=== PATIENT | female | born 1945 | race Caucasian/White ===

== ENCOUNTER 2016-12-05 11:45 | Emergency (ER) | payer OTHER ==
--- NOTE | 2016-12-05 11:50 | EDPHY ---
H & P Time Seen by Provider: 12/05/16 11:47 Constitutional: Initial Vital Signs Temperature (C) 36.3 C 12/05/16 11:57 Heart Rate 63 12/05/16 11:57 Respiratory Rate 18 12/05/16 11:57 Blood Pressure 156/79 H 12/05/16 11:57 O2 Sat (%) 93 12/05/16 11:57 O2 Delivery Mode Room Air Allergies/Adverse Reactions: Sulfa (Sulfonamide Antibiotics) Allergy (Verified 12/05/16 11:59) Home Medications: Medication Instructions Recorded HCTZ (*) 12/05/16 Medical Decision Making ED Course/Re-evaluation: CHIEF COMPLAINT: Abdominal cramping, nausea, lightheadedness HISTORY OF PRESENT ILLNESS: This patient is a 70 year old female arriving with her daughter complaining of nausea, abdominal cramping, and lightheadedness onset this morning. She states she was receiving a deep tissue massage, and began experiencing abdominal cramping and "gastro churning". She had a subsequent bowel movement which she described as loose stools. She felt nauseous and lightheaded, and her daughter at bedside reports she was "sweating profusely" while feeling unwell. She reports she has experienced lightheadedness from abdominal cramping before, but that this episode is worse than usual. She is alert and responding appropriately. She denies loss of consciousness. She feels most of her symptoms have resolved at this point, and suggests that her lingering nausea may be a result of hunger. She did eat two eggs for breakfast, but says she usually eats more. REVIEW OF SYSTEMS: A 10 point review of systems was performed and is negative with the exception of the elements mentioned in the history of present illness. PHYSICAL EXAM: HR, BP, O2 Sat, RR. Temp noted General Appearance: Alert, well hydrated, appropriate, and non-toxic appearing. Head: Atraumatic without scalp tenderness or obvious injury Eyes: Pupils equal, round, reactive to light and accommodation, EOMI, no trauma , no injection. Nose: Atraumatic, no rhinorrhea, clear. Throat: There is no erythema or exudates, no lesions, normal tonsils, mucus membranes moist. Neck: Supple, nontender, no lymphadenopathy. Respiratory: No retractions, no distress, no wheezes, and no accessory muscle use. Lungs are clear to auscultation bilaterally. Cardiovascular: Regular rate and rhythm, no murmurs, rubs, or gallops. Good capillary refill all extremities. Gastrointestinal: Abdomen is soft, nontender, non-distended, no masses, no rebound, no guarding, no peritoneal signs. Musculoskeletal: Normal active ROM of all extremities, atraumatic. Neurological: Alert, appropriate, and interactive. The patient has normal DTRs and non-focal cranial nerves, motor, sensory, and cerebellar exam. Skin: No rashes, good turgor, no nodules on palpation. Past medical history: Migraines Past surgical history: Dental procedures. Family history: Noncontributory Social history: Daughter at bedside DIAGNOSTICS/PROCEDURES/CRITICAL CARE TIME: The 12 lead EKG was interpreted by myself. See hard copy and/or "tracemaster" electronic copy for interpretation. Sinus rhythm, rate 59. DIFFERENTIAL DIAGNOSIS: The differential diagnosis for the patient's near syncope included but was not limited to vasovagal near-syncope, arrhythmia, dehydration, cardiogenic causes, neurogenic causes, and blood loss. MEDICAL DECISION MAKING: This patient is a 71 year old female presenting with nausea and lightheadedness following a near-syncopal episode this morning. She feels most of her symptoms have resolved at this point, but she is still nauseous. Physical exam is unremarkable. No neuro deficits. Plan to order labs, IStat, and EKG. Administered 4mg IV Zofran to treat nausea. EKG is normal, labs unremarkable. The patient likely had a vasovagal episode triggered by abdominal pain. Reassessed the patient. Plan to discharge home in good condition. Return precautions discussed. She is comfortable with this plan. - Data Points Laboratory Results: 12/05/16 12:11 POC Hgb 11.9 gm/dL L gm/dL (12.3-15.9) POC Hct 35 % L % (35.5-47.5) POC Sodium 145 mEq/L H mEq/L (134-144) POC Potassium 2.6 mEq/L L* mEq/L (3.3-5.0) POC Chloride 104 mEq/L mEq/L (96-108) POC BUN 18 mg/dL mg/dL (7-23) POC Creatinine 0.8 mg/dL mg/dL (0.6-1.2) POC Glucose 91 mg/dL mg/dL (70-100) Medications Given: Discontinued Medications Ondansetron HCl (Zofran) 4 mg IVP EDNOW ONE Stop: 12/05/16 12:05 Last Admin: 12/05/16 12:12 Dose: Not Given Point of Care Test Results: 12/05/16 12:11 POC Sodium 145 H POC Potassium 2.6 L* POC Chloride 104 POC BUN 18 POC Creatinine 0.8 POC Glucose 91 Departure - Departure Disposition: Home, Routine, Self-Care Clinical Impression: Vasovagal near syncope Condition: Good Instructions: Near Syncope (ED) Additional Instructions: 1. Follow up with your primary care provider for symptoms unresolved in the next few days. 2. Stay well hydrated. 2. Return to the ED for worsening headache, fever, chills, or other worsening of condition. Referrals: Patient,NotPresent [Primary Care Provider] - As per Instructions Glendy Banks MD [Medical Doctor] - As per Instructions Report Scribed for: Damien Ventura Report Scribed by: Gita Alvarez Date of Report: 12/05/16 Time of Report: 12:01
[2016-12-05 11:59] VITALS: TEMP 97.3
[2016-12-05] MEDS ORDERED: ONDANSETRON 4 MG/2 ML VIAL IVP ONE (12:04)
--- NOTE | 2016-12-05 12:10 | CPEKG ---
Heart Rate: 59 RR Interval: 1017 P-R Interval: 168 QRSD Interval: 96 QT Interval: 452 QTC Interval: 448 P Big Pool: 32 QRS Big Pool: -45 T Wave Big Pool: 16 EKG Severity - ABNORMAL ECG - EKG Impression: SINUS RHYTHM EKG Impression: PROBABLE LEFT ATRIAL ABNORMALITY EKG Impression: LEFT ANTERIOR FASCICULAR BLOCK EKG Impression: LEFT VENTRICULAR HYPERTROPHY Electronically Signed By: Damien Ventura 05-Dec-2016 13:44:19
[2016-12-05 12:45] VITALS: BP 155/54; PULSE 64; RESP 16; O2SAT 96
== END 2016-12-05 12:46 | disposition home or self-care (01) ==
DX: R55 Syncope and collapse (principal)
CPT/HCPCS: 82947-QW; J2405